=== PATIENT | female | born 1975 | race Two or more races ===

== ENCOUNTER 2021-12-07 18:37 | Inpatient (IN) | payer MEDICAID ==
[~2021-12-07] VITALS: Ht 154.9 cm; Wt 114.9 kg
[2021-12-07 19:33] LABS: Basophils # (auto) 0.1 10 ^3/uL (0-0.2); Eosinophils # (auto) 0.1 10 ^3/uL (0-0.8); Eosinophils % (auto) 0.9 % (0.0-7.0); Mean Corpuscular Hemoglobin 22.7 pg (28.0-32.0)
[2021-12-07 19:34] LABS: Basophils % (auto) 0.7 % (0.0-2.0); Hematocrit 34.1 % (36.0-46.0); Hemoglobin 11.2 g/dL (12.2-16.2); Lymphocytes # (auto) 1.9 10 ^3/uL (0.4-5.4); Lymphocytes % (auto) 20.5 % (10.0-50.0); Mean Corpuscular Hgb Conc. 32.7 g/dL (32.0-36.0); Mean Corpuscular Volume 69.3 fL (80.0-100.0); Monocytes # (auto) 0.4 10 ^3/uL (0-1.3); Monocytes % (auto) 4.9 % (0.0-12.0); Neutrophils # (auto) 6.6 10 ^3/uL (1.6-8.6); Red Blood Cells 4.93 10^6/uL (4.0-5.20); Red Cell Distribution Width 18.7 % (11.8-14.3)
[2021-12-07 19:36] LABS: Urine Bacteria NONE SEEN /hpf (None Seen); Urine Blood TRACE /uL (Negative); Urine Specific Gravity 1.039 (1.001-1.035); Urine WBC 2 /hpf (0 - 5)
[2021-12-07] MEDS ORDERED: InsuLIN REG 1unit/0.01ml Soln (100units/ml) IV ONE (19:45)
[2021-12-07 19:55] LABS: Albumin 3.9 g/dL (3.4-5.0); Calcium 8.5 mg/dL (8.5-10.1); Potassium 4.2 mmol/L (3.5-5.1)
[2021-12-07 19:59] LABS: BUN/Creatinine Ratio 12.6; Bilirubin, Total 0.4 mg/dL (0.2-1.0)
[2021-12-07] MEDS ORDERED: NITROGLYCERIN 0.4 MG SL TAB SL PRN (23:30)
[2021-12-07] MEDS ORDERED: DOCUSATE SOD 100 MG CAP PO PRN (23:30)
[2021-12-07] MEDS ORDERED: HYDROcodone-ACET 5/325MG TAB PO PRN (23:30)
[2021-12-07] MEDS ORDERED: TEMAZEPAM 15 MG CAP PO PRN (23:30)
[2021-12-07] MEDS ORDERED: DEXTROSE (50%) 50ML SYRG IV PRN (23:30)
[2021-12-07] MEDS ORDERED: MORPHINE SULFATE INJ 2 MG/ml SYRG IV PRN (23:30)
[2021-12-07] MEDS ORDERED: ONDANSETRON HCL 4 MG/2 ML VIAL IV PRN (23:30)
[2021-12-07] MEDS ORDERED: ACETAMINOPHEN 325 MG TAB PO PRN (23:30)
[2021-12-08] MEDS: SODIUM CHLORIDE 0.9% 1,000 ML IV SCH ×2 (01:57→16:45)
[2021-12-08] MEDS: InsuLIN REG 1unit/0.01ml Soln (100units/ml) SC SCH ×4 (02:18→18:27)
[2021-12-08] MEDS: ACCU-CHEK COMFORT CURVE STRIP VI SCH ×4 (02:20→18:22)
[2021-12-08 04:37] LABS: Basophils # (auto) 0.1 10 ^3/uL (0-0.2); Basophils % (auto) 0.8 % (0.0-2.0); Eosinophils # (auto) 0.1 10 ^3/uL (0-0.8); Eosinophils % (auto) 1.6 % (0.0-7.0); Hematocrit 32.4 % (36.0-46.0); Hemoglobin 10.6 g/dL (12.2-16.2); Lymphocytes # (auto) 1.6 10 ^3/uL (0.4-5.4); Lymphocytes % (auto) 21.6 % (10.0-50.0); Mean Corpuscular Hemoglobin 22.7 pg (28.0-32.0); Mean Corpuscular Hgb Conc. 32.7 g/dL (32.0-36.0); Mean Corpuscular Volume 69.3 fL (80.0-100.0); Monocytes # (auto) 0.4 10 ^3/uL (0-1.3); Monocytes % (auto) 5.8 % (0.0-12.0); Neutrophils # (auto) 5.2 10 ^3/uL (1.6-8.6); Neutrophils % (auto) 70.2 % (37.0-80.0); Red Blood Cells 4.67 10^6/uL (4.0-5.20); Red Cell Distribution Width 18.6 % (11.8-14.3); White Blood Cell 7.5 10^3/uL (4.4-10.8)
[2021-12-08 04:49] LABS: Albumin 3.6 g/dL (3.4-5.0); Calcium 8.6 mg/dL (8.5-10.1); Potassium 4.2 mmol/L (3.5-5.1)
[2021-12-08 05:00] LABS: BUN/Creatinine Ratio 13.8; Bilirubin, Total 0.4 mg/dL (0.2-1.0); Total Protein 7.4 g/dL (6.4-8.2)
[2021-12-08] MEDS: INSULIN LANTUS (GLARGINE) 1 /0.01ml (100units/ml) SC SCH ×2 (07:04→21:28)
[2021-12-08 15:30] VITALS: BP 118/84
[2021-12-08] MEDS ORDERED: LOSA25TA38 PO (15:43)
[2021-12-08 16:00] VITALS: BP 118/84
[2021-12-08 22:00] VITALS: BP 134/73
[2021-12-09] MEDS: InsuLIN REG 1unit/0.01ml Soln (100units/ml) SC SCH ×4 (00:33→18:14)
[2021-12-09] MEDS: ACCU-CHEK COMFORT CURVE STRIP VI SCH ×4 (00:36→18:13)
[2021-12-09 05:00] VITALS: BP 110/73
[2021-12-09] MEDS: INSULIN LANTUS (GLARGINE) 1 /0.01ml (100units/ml) SC SCH ×2 (07:02→23:09)
[2021-12-09 08:38] VITALS: BP 97/61
[2021-12-09] MEDS: SODIUM CHLORIDE 0.9% 1,000 ML IV SCH (08:51)
[2021-12-09 12:51] VITALS: BP 118/69
[2021-12-09 16:50] VITALS: BP 106/77
[2021-12-09 22:00] VITALS: BP 120/74
[2021-12-10] MEDS: ACCU-CHEK COMFORT CURVE STRIP VI SCH ×3 (00:43→12:07)
[2021-12-10] MEDS: InsuLIN REG 1unit/0.01ml Soln (100units/ml) SC SCH ×3 (00:44→12:22)
[2021-12-10] MEDS: SODIUM CHLORIDE 0.9% 1,000 ML IV SCH (00:47)
[2021-12-10 05:00] VITALS: BP 117/67
[2021-12-10] MEDS: INSULIN LANTUS (GLARGINE) 1 /0.01ml (100units/ml) SC SCH (06:52)
[2021-12-10 08:32] VITALS: BP 99/63
[2021-12-10] MEDS ORDERED: METF-372 PO (10:38)
[2021-12-10 11:14] VITALS: BP 130/74
[2021-12-10 13:23] VITALS: BP 120/80
== END 2021-12-10 13:51 | disposition home or self-care (01) | DRG 420 ==
LOC: ER 18:39 → OVERFLOW 23:21 → EAST 12-08 15:48
PROVIDERS: ADMIT Nurse Practitioner Family; ATTEND Family Medicine
DX: E11.10 Type 2 diabetes mellitus with ketoacidosis without coma (principal); E87.1 Hypo-osmolality and hyponatremia; E66.01 Morbid (severe) obesity due to excess calories; I10 Essential (primary) hypertension; E86.0 Dehydration; H53.8 Other visual disturbances; Z68.41 Body mass index [BMI] 40.0-44.9, adult; Z83.3 Family history of diabetes mellitus
CPT/HCPCS: 36415; 36600; 71046; 80053; 81001; 82805; 82962; 83036; 84484; 85025; 93005; 99291; G0378; J1815

== ENCOUNTER 2022-11-01 14:42 | Emergency (ER) | payer MEDICAID ==
[~2022-11-01] VITALS: Ht 172.7 cm; Wt 108.5 kg
[~2022-11-01 14:42] MED LIST: LOSA25TA15 PO; METF-372 PO
[2022-11-01 15:47] VITALS: BP 156/85; PULSE 89; RESP 16; TEMP 97.8; O2SAT 96
[2022-11-01 16:35] LABS: Basophils # (auto) 0 10 ^3/uL (0-0.2); Basophils % (auto) 0.6 % (0.0-2.0); Eosinophils # (auto) 0.1 10 ^3/uL (0-0.8); Eosinophils % (auto) 1.5 % (0.0-7.0); Hemoglobin 12.3 g/dL (12.2-16.2); Lymphocytes # (auto) 1.8 10 ^3/uL (0.4-5.4); Mean Corpuscular Hemoglobin 26.3 pg (28.0-32.0); Mean Corpuscular Hgb Conc. 33.3 g/dL (32.0-36.0); Mean Corpuscular Volume 79.1 fL (80.0-100.0); Monocytes # (auto) 0.3 10 ^3/uL (0-1.3); Monocytes % (auto) 4.6 % (0.0-12.0); Neutrophils # (auto) 5.1 10 ^3/uL (1.6-8.6); Neutrophils % (auto) 69.3 % (37.0-80.0); Nucleated Red Blood Cells % 0.1 %; Red Blood Cells 4.67 10^6/uL (4.0-5.20); Red Cell Distribution Width 17.3 % (11.8-14.3); White Blood Cell 7.3 10^3/uL (4.4-10.8)
[2022-11-01 16:43] LABS: Urine Bacteria NONE SEEN /hpf (None Seen); Urine Blood 2+ /uL (Negative); Urine Clarity Clear (Clear); Urine Color Yellow (Yellow); Urine Protein, UAD TRACE (Negative); Urine Specific Gravity 1.028 (1.001-1.035); Urine Urobilinogen Normal (Negative); Urine WBC 3 /hpf (0 - 5); Urine pH 5.5 (5.0-8.0)
[2022-11-01 16:52] LABS: Chloride 105 mmol/L (98-107); Potassium 3.9 mmol/L (3.5-5.1); Sodium 137 mmol/L (136-145)
[2022-11-01 16:53] LABS: Anion Gap 8.6 (5-15); Calcium 9.4 mg/dL (8.5-10.1); Carbon Dioxide 23.4 mmol/L (20-30)
[2022-11-01 16:58] LABS: BUN/Creatinine Ratio 11.6 (10.0-20.0); Blood Urea Nitrogen 10 mg/dL (9-23); Glucose 112 mg/dL (74-106)
[2022-11-01 17:17] LABS: INR 0.99 (0.9-1.15); Prothrombin Time 10.4 sec (9.3-11.8)
[2022-11-01] MEDS ORDERED: CEPH500C PO (17:31)
== END 2022-11-01 17:38 | disposition home or self-care (01) ==
LOC: ER 14:42
DX: R60.0 Localized edema (principal); I10 Essential (primary) hypertension; E11.9 Type 2 diabetes mellitus without complications; Z79.84 Long term (current) use of oral hypoglycemic drugs; Z79.899 Other long term (current) drug therapy; Z88.0 Allergy status to penicillin
CPT/HCPCS: 36415; 80048; 81001; 83605; 83880; 85025; 85610; 87040; 93971

== ENCOUNTER 2023-04-27 13:59 | Inpatient (IN) | payer MEDICAID ==
[~2023-04-27] VITALS: Ht 152.4 cm; Wt 110.5 kg
[~2023-04-27 13:59] MED LIST changes: +CEPH500C PO
[2023-04-27 14:45] LABS: Urine Bacteria FEW /hpf (None Seen); Urine Blood 3+ /uL (Negative); Urine Clarity HAZY (Clear); Urine Color Yellow (Yellow); Urine Protein, UAD Negative (Negative); Urine Specific Gravity 1.012 (1.001-1.035); Urine Urobilinogen Normal (Negative); Urine WBC 3 /hpf (0 - 5)
[2023-04-27 14:55] LABS: Basophils # (auto) 0 10 ^3/uL (0-0.2); Basophils % (auto) 0.5 % (0.0-2.0); Eosinophils # (auto) 0.1 10 ^3/uL (0-0.8); Lymphocytes # (auto) 1.3 10 ^3/uL (0.4-5.4); Mean Corpuscular Volume 79.6 fL (80.0-100.0); Monocytes # (auto) 0.5 10 ^3/uL (0-1.3)
[2023-04-27 14:57] LABS: Eosinophils % (auto) 1.5 % (0.0-7.0); Hematocrit 34.4 % (36.0-46.0); Hemoglobin 11.6 g/dL (12.2-16.2); Lymphocytes % (auto) 17.6 % (10.0-50.0); Mean Corpuscular Hemoglobin 26.8 pg (28.0-32.0); Mean Corpuscular Hgb Conc. 33.6 g/dL (32.0-36.0); Monocytes % (auto) 6.8 % (0.0-12.0); Neutrophils # (auto) 5.6 10 ^3/uL (1.6-8.6); Neutrophils % (auto) 73.6 % (37.0-80.0); Red Blood Cells 4.32 10^6/uL (4.0-5.20); Red Cell Distribution Width 16.8 % (11.8-14.3); White Blood Cell 7.6 10^3/uL (4.4-10.8)
[2023-04-27 15:04] LABS: Chloride 107 mmol/L (98-107); Potassium 4.1 mmol/L (3.5-5.1); Sodium 138 mmol/L (136-145)
[2023-04-27 15:05] LABS: Anion Gap 8 (5-15); Carbon Dioxide 23 mmol/L (20-30)
[2023-04-27 15:06] LABS: Calcium 8.9 mg/dL (8.7-10.4)
[2023-04-27 15:10] LABS: BUN/Creatinine Ratio 10.9 (10.0-20.0); Blood Urea Nitrogen 7 mg/dL (9-23); Glucose 136 mg/dL (74-106)
[2023-04-27] MEDS: ASPirin 81 mg TAB PO ONE (15:14)
[2023-04-27] MEDS ORDERED: MORPHINE SULFATE INJ 2 MG/ml SYRG IV PRN (18:00)
[2023-04-27] MEDS ORDERED: DOCUSATE SOD 100 MG CAP PO PRN (18:00)
[2023-04-27] MEDS ORDERED: ONDANSETRON HCL 4 MG/2 ML VIAL IV PRN (18:00)
[2023-04-27] MEDS ORDERED: NITROGLYCERIN 0.4 MG SL TAB SL PRN (18:00)
[2023-04-27] MEDS ORDERED: HYDROcodone-ACET 5/325MG TAB PO PRN (18:00)
[2023-04-27] MEDS: LACTATED RINGER'S 1,000 ML IV ONE (18:15)
[2023-04-27 18:56] VITALS: PULSE 74; RESP 16; O2SAT 99
[2023-04-27 19:27] VITALS: PULSE 72; RESP 14; O2SAT 99
[2023-04-27 19:28] LABS: Triglycerides 135 mg/dL (< 150)
[2023-04-27 19:29] LABS: LDL Cholesterol 125 mg/dL (< 100)
[2023-04-27 19:30] LABS: Cholesterol 177 mg/dL (< 200); HDL Cholesterol 39 mg/dL (40-59)
[2023-04-27] MEDS: SODIUM CHLOR 0.9% PF (SALINE LOCK) 10ML VIAL/SYR IV SCH (21:53)
[2023-04-27 23:29] VITALS: BP 136/79; PULSE 89; PULSE 99; RESP 18; TEMP 98.5; O2SAT 99
[2023-04-28] VITALS (7 sets, daily range): BP systolic 119–169; BP diastolic 49–101; PULSE 69–85; RESP 17–18; TEMP 97.6–98.5; O2SAT 96–100
[2023-04-28] MEDS: ACETAMINOPHEN 325 MG TAB PO PRN (04:42)
[2023-04-28 09:03] LABS: Hepatitis B Surface Antigen Negative (Negative)
[2023-04-28 09:24] LABS: Hepatitis C Antibody Negative (Negative)
[2023-04-28] MEDS: LOSARTAN POTASSIUM 25 MG TAB PO SCH (10:01)
[2023-04-28] MEDS: ENOXAPARIN SOD 40 MG/0.4 ML SYRINGE SC SCH (10:02)
[2023-04-28] MEDS: LOSARTAN POTASSIUM 25 MG TAB PO ONE (15:04)
[2023-04-28] MEDS: cefTRIAXone 1GM/50ML D5W 50 ML IV ONE (15:33)
[2023-04-28 15:42] LABS: Basophils # (auto) 0 10 ^3/uL (0-0.2); Basophils % (auto) 0.6 % (0.0-2.0); Eosinophils # (auto) 0.1 10 ^3/uL (0-0.8); Hemoglobin 11.3 g/dL (12.2-16.2); Monocytes # (auto) 0.5 10 ^3/uL (0-1.3); Neutrophils # (auto) 4.8 10 ^3/uL (1.6-8.6)
[2023-04-28 15:45] LABS: Eosinophils % (auto) 1.7 % (0.0-7.0); Hematocrit 33.8 % (36.0-46.0); Lymphocytes # (auto) 1.5 10 ^3/uL (0.4-5.4); Lymphocytes % (auto) 21.5 % (10.0-50.0); Mean Corpuscular Hemoglobin 26.4 pg (28.0-32.0); Mean Corpuscular Hgb Conc. 33.4 g/dL (32.0-36.0); Mean Corpuscular Volume 78.9 fL (80.0-100.0); Monocytes % (auto) 6.8 % (0.0-12.0); Neutrophils % (auto) 69.4 % (37.0-80.0); Nucleated Red Blood Cells % 0.1 %; Red Blood Cells 4.28 10^6/uL (4.0-5.20); Red Cell Distribution Width 16.3 % (11.8-14.3); White Blood Cell 6.9 10^3/uL (4.4-10.8)
[2023-04-28 16:03] LABS: % Iron Saturation 11.6 % (15-50)
[2023-04-28 16:04] LABS: Alanine Aminotransferase 31 U/L (7-40); Albumin 4.3 g/dL (3.2-4.8); Alkaline Phosphatase 102 U/L (46-116); Anion Gap 6 (5-15); Aspartate Aminotransferase 21 U/L (13-40); BUN/Creatinine Ratio 14.3 (10.0-20.0); Blood Urea Nitrogen 10 mg/dL (9-23); Carbon Dioxide 25 mmol/L (20-30); Chloride 105 mmol/L (98-107); Glucose 128 mg/dL (74-106); Potassium 3.9 mmol/L (3.5-5.1); Sodium 136 mmol/L (136-145)
[2023-04-28 16:05] LABS: Bilirubin, Total 0.5 mg/dL (0.2-1.0); Total Protein 7.4 g/dL (5.7-8.2)
[2023-04-28] MEDS: ATORVASTATIN 20 MG TAB PO SCH (21:27)
[2023-04-29] VITALS (7 sets, daily range): BP systolic 106–127; BP diastolic 60–77; PULSE 70–85; RESP 16–18; TEMP 97.7–98.7; O2SAT 95–98
[2023-04-29 06:00] LABS: Basophils # (auto) 0 10 ^3/uL (0-0.2); Basophils % (auto) 0.6 % (0.0-2.0); Eosinophils # (auto) 0.1 10 ^3/uL (0-0.8); Eosinophils % (auto) 1.9 % (0.0-7.0); Hematocrit 32.9 % (36.0-46.0); Hemoglobin 10.8 g/dL (12.2-16.2); Lymphocytes # (auto) 1.6 10 ^3/uL (0.4-5.4); Lymphocytes % (auto) 21.5 % (10.0-50.0); Mean Corpuscular Hemoglobin 26.2 pg (28.0-32.0); Mean Corpuscular Hgb Conc. 32.8 g/dL (32.0-36.0); Mean Corpuscular Volume 79.7 fL (80.0-100.0); Monocytes # (auto) 0.5 10 ^3/uL (0-1.3); Monocytes % (auto) 7.2 % (0.0-12.0); Neutrophils # (auto) 5.1 10 ^3/uL (1.6-8.6); Neutrophils % (auto) 68.8 % (37.0-80.0); Red Blood Cells 4.13 10^6/uL (4.0-5.20); Red Cell Distribution Width 16.4 % (11.8-14.3); White Blood Cell 7.4 10^3/uL (4.4-10.8)
[2023-04-29 06:08] LABS: Chloride 106 mmol/L (98-107); Potassium 3.7 mmol/L (3.5-5.1); Sodium 137 mmol/L (136-145)
[2023-04-29 06:09] LABS: Anion Gap 7 (5-15); Carbon Dioxide 24 mmol/L (20-30)
[2023-04-29 06:10] LABS: Calcium 8.7 mg/dL (8.7-10.4)
[2023-04-29 06:14] LABS: Glucose 137 mg/dL (74-106)
[2023-04-29 06:15] LABS: BUN/Creatinine Ratio 14.7 (10.0-20.0); Blood Urea Nitrogen 10 mg/dL (9-23); Magnesium 2.2 mg/dL (1.6-2.6)
[2023-04-29] MEDS: FERROUS SULFATE 325mg EC TAB PO SCH (09:11)
[2023-04-29] MEDS: cefTRIAXone 1GM/50ML D5W 50 ML IV SCH (09:11)
[2023-04-29] MEDS: ASPirin 81 mg TAB PO SCH (11:47)
[2023-04-29] MEDS ORDERED: IOHEXOL 350 MG/ML 100ML IJ ONE (12:07)
[2023-04-29] MEDS: CLOPIDOGREL BISULFATE 75 MG TAB PO ONE (19:17)
[2023-04-29] MEDS: LOSARTAN POTASSIUM 50 MG TAB PO SCH (19:22)
[2023-04-30 05:00] VITALS: BP 102/64; PULSE 70; RESP 17; TEMP 98; O2SAT 99
[2023-04-30 08:00] VITALS: BP 117/63; PULSE 67; PULSE 70; RESP 18; TEMP 98.6; O2SAT 97
[2023-04-30] MEDS: CLOPIDOGREL BISULFATE 75 MG TAB PO SCH (08:48)
[2023-04-30 09:00] VITALS: BP 117/63; PULSE 67; RESP 18; TEMP 98.6; O2SAT 97
[2023-04-30] MEDS ORDERED: CLOP75TA70 PO (10:28)
[2023-04-30] MEDS ORDERED: FER325T PO ×2 (10:28→15:37)
[2023-04-30] MEDS ORDERED: ASPI1TAB20 PO ×2 (10:28→15:37)
[2023-04-30] MEDS ORDERED: ATOR40TA52 PO (10:28)
[2023-04-30] MEDS ORDERED: LOSA25TA15 PO ×2 (10:32→15:37)
[2023-04-30 11:19] VITALS: BP 117/63; PULSE 67; RESP 18; TEMP 98.6; O2SAT 97
[2023-04-30] MEDS ORDERED: FERROUS SULFATE 325mg EC TAB PO SCH (12:00)
[2023-04-30] MEDS: FERROUS SULFATE 325mg EC TAB PO SCH (12:02)
[2023-04-30 13:00] VITALS: BP 110/68; PULSE 79; RESP 18; TEMP 98.6; O2SAT 96
[2023-04-30] MEDS: IBUPROFEN 400 MG TAB PO ONE (13:41)
[2023-04-30] MEDS ORDERED: METF-929 PO (15:37)
[2023-04-30] MEDS ORDERED: CLOP75TA28 PO (15:37)
[2023-04-30] MEDS ORDERED: ATO40T PO (15:37)
== END 2023-04-30 18:01 | disposition home or self-care (01) | DRG 45 ==
LOC: ER 13:59 → TELE-WESTW 18:01 → TELE 18:01 → TELE-WESTW 22:55
PROVIDERS: ADMIT Internal Medicine Geriatric Medicine; ATTEND Internal Medicine Geriatric Medicine
DX: I63.9 Cerebral infarction, unspecified (principal); D50.9 Iron deficiency anemia, unspecified; E11.9 Type 2 diabetes mellitus without complications; E78.5 Hyperlipidemia, unspecified; I10 Essential (primary) hypertension; R07.89 Other chest pain; N39.0 Urinary tract infection, site not specified; R20.0 Anesthesia of skin; Z80.3 Family history of malignant neoplasm of breast; Z88.0 Allergy status to penicillin; Z90.49 Acquired absence of other specified parts of digestive tract
CPT/HCPCS: 36415; 70450; 70496; 70551; 71046; 72141; 80048; 80053; 80061; 81001; 82728; 83010; 83036; 83540; 83550; 83615; 83735; 83880; 84443; 84484; 85025; 85045; 86803; 87081; 87086; 87340; 93005; 93306; 93886; G0378

== ENCOUNTER 2023-05-05 08:46 | Emergency (ER) | payer MEDICAID ==
[~2023-05-05] VITALS: Ht 154.9 cm; Wt 107.2 kg
[~2023-05-05 08:46] MED LIST changes: +ASPI1TAB20 PO; +ATO40T PO; -CEPH500C PO; +CLOP75TA28 PO; +FER325T PO; -METF-372 PO; +METF-929 PO
[2023-05-05 09:13] LABS: Basophils # (auto) 0.1 10 ^3/uL (0-0.2); Basophils % (auto) 0.7 % (0.0-2.0); Eosinophils # (auto) 0.1 10 ^3/uL (0-0.8); Eosinophils % (auto) 1.1 % (0.0-7.0); Hematocrit 32.8 % (36.0-46.0); Hemoglobin 10.8 g/dL (12.2-16.2); Lymphocytes # (auto) 1.3 10 ^3/uL (0.4-5.4); Lymphocytes % (auto) 15.6 % (10.0-50.0); Mean Corpuscular Hemoglobin 26.3 pg (28.0-32.0); Mean Corpuscular Hgb Conc. 32.9 g/dL (32.0-36.0); Mean Corpuscular Volume 79.9 fL (80.0-100.0); Monocytes # (auto) 0.3 10 ^3/uL (0-1.3); Monocytes % (auto) 3.9 % (0.0-12.0); Neutrophils # (auto) 6.7 10 ^3/uL (1.6-8.6); Neutrophils % (auto) 78.7 % (37.0-80.0); Red Cell Distribution Width 16.7 % (11.8-14.3); White Blood Cell 8.6 10^3/uL (4.4-10.8)
[2023-05-05 09:30] LABS: Alanine Aminotransferase 25 U/L (7-40); Albumin 4.4 g/dL (3.2-4.8); Alkaline Phosphatase 110 U/L (46-116); Anion Gap 6 (5-15); Aspartate Aminotransferase 18 U/L (13-40); BUN/Creatinine Ratio 16.7 (10.0-20.0); Bilirubin, Total 0.5 mg/dL (0.2-1.0); Blood Urea Nitrogen 11 mg/dL (9-23); Carbon Dioxide 25 mmol/L (20-30); Chloride 106 mmol/L (98-107); Glucose 196 mg/dL (74-106); Potassium 4.3 mmol/L (3.5-5.1); Sodium 137 mmol/L (136-145); Total Protein 6.8 g/dL (5.7-8.2)
[2023-05-05 10:08] VITALS: PULSE 94; RESP 18; O2SAT 98
[2023-05-05 10:13] LABS: Urine Bacteria NONE SEEN /hpf (None Seen); Urine Blood 3+ /uL (Negative); Urine Clarity HAZY (Clear); Urine Color PINK (Yellow); Urine Protein, UAD 1+ (Negative); Urine Specific Gravity 1.021 (1.001-1.035); Urine WBC 36 /hpf (0 - 5)
[2023-05-05] MEDS ORDERED: NITR-87 PO (11:12)
[2023-05-05 11:18] VITALS: BP 129/77; PULSE 79; RESP 18; TEMP 98.1; O2SAT 100
== END 2023-05-05 11:18 | disposition home or self-care (01) ==
LOC: ER 08:46
DX: D64.9 Anemia, unspecified (principal); R10.2 Pelvic and perineal pain; I10 Essential (primary) hypertension; E11.9 Type 2 diabetes mellitus without complications; E78.5 Hyperlipidemia, unspecified; Z86.2 Personal history of diseases of the blood and blood-forming organs and certain disorders involving the immune mechanism; Z90.49 Acquired absence of other specified parts of digestive tract; Z79.82 Long term (current) use of aspirin; Z79.01 Long term (current) use of anticoagulants; Z79.899 Other long term (current) drug therapy; Z88.0 Allergy status to penicillin; Z86.73 Personal history of transient ischemic attack (TIA), and cerebral infarction without residual deficits
CPT/HCPCS: 36415; 80053; 81001; 84702; 85025

== ENCOUNTER → 2023-06-06 | Outpatient (CLI) | payer MEDICAID ==
[~2023-06-06] MED LIST changes: -ATO40T PO; +ATOR-507 PO; +LOSA-533 PO; -LOSA25TA15 PO; +NITR-87 PO
== END | disposition home or self-care (01) ==
LOC: LAB 09:00
PROVIDERS: ATTEND Obstetrics & Gynecology
DX: N93.9 Abnormal uterine and vaginal bleeding, unspecified (principal)

== ENCOUNTER → 2023-12-12 | Outpatient (CLI) | payer MEDICAID | END | disposition home or self-care (01) | LOC: Rad HDHVI 13:00 | PROVIDERS: ATTEND Internal Medicine Cardiovascular Disease | DX: R07.89 Other chest pain (principal); R00.2 Palpitations | CPT/HCPCS: 93306 ==

== ENCOUNTER → 2023-12-15 | Outpatient (CLI) | payer MEDICAID ==
[~2023-12-15] VITALS: Ht 154.9 cm; Wt 101.2 kg
== END | disposition home or self-care (01) ==
LOC: Rad HDHVI 13:09
PROVIDERS: ATTEND Internal Medicine Cardiovascular Disease
DX: I10 Essential (primary) hypertension (principal); E78.00 Pure hypercholesterolemia, unspecified; E11.9 Type 2 diabetes mellitus without complications; R07.89 Other chest pain
CPT/HCPCS: 78452; 93017; 96374; A9500

== ENCOUNTER 2024-08-04 19:36 | Emergency (ER) | payer MEDICAID ==
[~2024-08-04] VITALS: Ht 154.9 cm; Wt 100.7 kg
[2024-08-04 20:05] LABS: Basophils # (auto) 0.1 10 ^3/uL (0-0.2); Basophils % (auto) 0.7 % (0.0-2.0); Eosinophils # (auto) 0.2 10 ^3/uL (0-0.8); Hematocrit 36.4 % (36.0-46.0); Hemoglobin 12.1 g/dL (12.2-16.2); Lymphocytes # (auto) 1.8 10 ^3/uL (0.4-5.4); Lymphocytes % (auto) 21.6 % (10.0-50.0); Mean Corpuscular Hemoglobin 26.4 pg (28.0-32.0); Mean Corpuscular Hgb Conc. 33.2 g/dL (32.0-36.0); Mean Corpuscular Volume 79.5 fL (80.0-100.0); Monocytes # (auto) 0.4 10 ^3/uL (0-1.3); Monocytes % (auto) 4.6 % (0.0-12.0); Neutrophils % (auto) 71.1 % (37.0-80.0); Nucleated Red Blood Cells % 0.1 %; Platelet Count (auto) 282 10^3/uL (140-450); Red Blood Cells 4.58 10^6/uL (4.0-5.20); White Blood Cell 8.4 10^3/uL (4.4-10.8)
--- NOTE | 2024-08-04 20:08 | ED.PDOC ---
HPI Comments 49 year old female presents to the ED with a chief complaint of chest pressure onset 4 days. PMHx HTN, HLD, DM, anemia. Patient states she has been experiencing chest pressure, fatigue, dizziness as well as intermittent shortness of breath for the past 4 days. She noticed symptoms improve when she is still and worsen with walking. She also noticed she has been feeling anxious the last few days. Denies headache, blurry vision, nausea, vomiting, diarrhea, hematemesis, fevers. No other symptoms or modifying factors present at this time. Chief Complaint: Chest Pain Time Seen by MD: 20:00 Primary Care Provider: UNKNOWN Reviewed Notes: Medications, Allergies Allergies: Coded Allergies: Penicillins (Verified Allergy, Unknown, 12/07/21) Home Meds Active Scripts Nitrofurantoin Monohydrate Mac (Macrobid) 100 Mg Cap, 100 MG PO BID for 7 Days, #14 CAP Prov:DAVE RAY MD 05/05/23 Ferrous Sulfate (Ferrous Sulfate) 325 Mg Tab, 325 MG PO BID for 30 Days, #60 TAB Prov:JOSE TEE MD 04/30/23 Metformin HCl (Metformin Hydrochloride) 1,000 Mg Tab, 1000 MG PO BID for 30 Days, #60 TAB Prov:JOSE TEE MD 04/30/23 Losartan Potassium (Losartan Potassium) 25 Mg Tab, 1 TAB PO DAILY, #30 TAB 0 Refills Prov:JOSE TEE MD 04/30/23 Atorvastatin Calcium (Lipitor) 40 Mg Tab, 1 TAB PO DAILY, #30 TAB 0 Refills Prov:JOSE TEE MD 04/30/23 Clopidogrel Bisulfate (Plavix) 75 Mg Tab, 1 TAB PO DAILY, #21 TAB 0 Refills Prov:JOSE TEE MD 04/30/23 Aspirin (Aspir-81) 81 Mg Tab, 1 TAB PO DAILY, #100 TAB 0 Refills Prov:JOSE TEE MD 04/30/23 Information Source: Patient Mode of Arrival: Ambulatory Severity: Moderate Timing: Days Duration: Since onset Prehospital treatment: None Location: Chest (L) Radiation: No Radiation Quality: Pressure Onset: With Light Exertion Cardiac Risk Factors: Hyperlipidemia, HTN, Diabetes PE Risk Factors: None History of: None Modifying Factors: Nothing Associated Signs and Symptoms: SOB Past Medical History PAST MEDICAL HISTORY: Anemia, DM, High Lipids, HTN Surgical History: Cholecystectomy, 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 Hx Family History Family History: Reviewed,noncontributory to illness, Family hx of Cancer Social History Smoker: Non-Smoker Alcohol: Denies ETOH Use Drugs: Denies Drug Use Lives In: Home Constitutional: reports: fatigue; denies: chills, diaphoresis, fever, malaise, sweats, weakness, others EENTM: denies: blurred vision, double vision, ear bleeding, ear discharge, ear drainage, ear pain, ear ringing, eye pain, eye redness, hearing loss, mouth pain, mouth swelling, nasal discharge, nose bleeding, nose congestion, nose pain, photophobia, tearing, throat pain, throat swelling, voice changes, others Respiratory: reports: shortness of breath; denies: cough, hemoptysis, orthopnea, SOB at rest, SOB with excertion, stridor, wheezing, others Cardiovascular: reports: others (chest pressure); denies: chest pain, dizzy spells, diaphoresis, Dyspnea on exertion, edema, irregular heart beat, left arm pain, lightheadedness, palpitations, PND, syncope Gastrointestinal: denies: abdomen distended, abdominal pain, blood streaked samuel wels, constipated, diarrhea, dysphagia, difficulty swallowing, hematemesis, melena, nausea, poor appetite, poor fluid intake, rectal bleeding, rectal pain, vomiting, others Genitourinary: denies: abnormal vagina bleeding, burning, dyspareunia, dysuria, flank pain, frequency, hematuria, incontinence, pain, , vagina discharge, urgency, others Neurological: reports: dizziness; denies: fainting, headache, left sided numbness, left sided weakness, numbness, paresthesia, pre-existing deficit, right sided numbness, right sided weakness, seizure, speech problems, tingling, tremors, weakness, others Musculoskeletal: denies: back pain, gout, joint pain, joint swelling, muscle pain, muscle stiffness, neck pain, others Integumetry: denies: bruises, change in color, change in hair/nails, dryness, laceration, lesions, lumps, rash, wounds, others Allergic/Immunocompromised: denies: Difficulty Healing, Frequent Infections, Hives, Itching, others Hematologic/Lymphatic: denies: anemia, blood clots, easy bleeding, easy bruising, swollen glands, others Endocrine: denies: excessive hunger, excessive sweating, excessive thirst, excessive urination, flushing, intolerance to cold, intolerance to heat, unexplained weight gain, unexplained weight loss, others Psychiatric: denies: anxiety, bipolar disorder, depression, hopeless, panic d isorder, schizophrenia, sleepless, suicidal, others All Other Systems: Reviewed and Negative Physical Exam General Appearance: No Apparent Distress, Normal HEENT: Normal ENT Inspection, Pharynx Normal, TMs Normal Neck: Full Range of Motion, Non-Tender, Normal, Normal Inspection Respiratory: Chest Non-Tender, Lungs Clear, No Accessory Muscle Use, No Respiratory Distress, Normal Breath Sounds Cardiovascular: No Edema, No JVD, No Murmur, No Gallop, Normal Peripheral Pulses, Regular Rate/Rhythm Breast Exam: Deferred Gastrointestinal: No Organomegaly, Non Tender, No Pulsatile Mass, Normal Bowel Sounds, Soft Genitalia: Deferred Pelvic: Deferred Rectal: Deferred Extremities: No calf tenderness, Normal capillary refill, Normal inspection, Normal range of motion, Non-tender, No pedal edema Musculoskeletal : Apperance: Normal Neurologic: Alert, concrete batcher II-XII nml as Tested, No Motor Deficits, Normal Affect, Normal Mood, No Sensory Deficits Cerebellar Function: Normal Reflexes: Normal Skin: Dry, Normal Color, Warm Lymphatic: No Adenopathy EKG EKG : Pulse Rate (adult): 77 Cardiac Rhythm: NSR Was a procedure done? Was a procedure done?: No CP Differential Dx Differential Diagnosis: A-Flutter, Angina, Electrolyte Disorder, Heart Failure, Hyperthyroidism, Hyperventilation, CT, PAC's, Pacemaker Malfunction, Ventricular Dysrhythmia, V-Fib, V-Tach, Other X-Ray, Labs, Meds, VS Vital Signs Date Time Temp Pulse Resp B/P (MAP) Pulse Ox O2 Delivery O2 Flow Rate FiO2 08/04/24 23:01 98.1 73 16 131/98 (109) 97 98.1 08/04/24 23:01 73 16 97 Room Air* 0 21 08/04/24 20:36 74 08/04/24 20:08 77 08/04/24 19:51 98.0 79 16 148/76 (100) 99 98.0 08/04/24 19:44 77 Lab Test 08/04/24 20:35 08/04/24 19:49 Range/Units Troponin I High Sensitivity < 3 L < 3 L </=34 ng/L White Blood Count 8.4 4.4-10.8 10^3/uL Red Blood Count 4.58 4.0-5.20 10^6/uL Hemoglobin 12.1 L 12.2-16.2 g/dL Hematocrit 36.4 36.0-46.0 % Mean Corpuscular Volume 79.5 L 80.0-100.0 fL Mean Corpuscular Hemoglobin 26.4 L 28.0-32.0 pg Mean Corpuscular Hemoglobin Concent 33.2 32.0-36.0 g/dL Red Cell Distribution Width 18.0 H 11.8-14.3 % Platelet Count 282 140-450 10^3/uL Mean Platelet Volume 7.1 6.9-10.8 fL Neutrophils (%) (Auto) 71.1 37.0-80.0 % Lymphocytes (%) (Auto) 21.6 10.0-50.0 % Monocytes (%) (Auto) 4.6 0.0-12.0 % Eosinophils (%) (Auto) 2.0 0.0-7.0 % Basophils (%) (Auto) 0.7 0.0-2.0 % Neutrophils # (Auto) 6.0 1.6-8.6 10 ^3/uL Lymphocytes # (Auto) 1.8 0.4-5.4 10 ^3/uL Monocytes # (Auto) 0.4 0-1.3 10 ^3/uL Eosinophils # (Auto) 0.2 0-0.8 10 ^3/uL Basophils # (Auto) 0.1 0-0.2 10 ^3/uL Nucleated Red Blood Cells 0.1 % Sodium Level 142 136-145 mmol/L Potassium Level 4.3 3.5-5.1 mmol/L Chloride Level 109 H 98-107 mmol/L Carbon Dioxide Level 24 20-31 mmol/L Anion Gap 9 5-15 Blood Urea Nitrogen 9 9-23 mg/dL Creatinine 0.80 0.550-1.02 mg/dL Glomerular Filtration Rate Calc 89 >90 mL/min BUN/Creatinine Ratio 11.3 10.0-20.0 Serum Glucose 112 H 74-106 mg/dL Calcium Level 9.8 8.7-10.4 mg/dL Total Bilirubin 0.4 0.2-1.0 mg/dL Aspartate Amino Transferase (AST) 18 13-40 U/L Alanine Aminotransferase (ALT) 21 7-40 U/L Alkaline Phosphatase 121 H 46-116 U/L Total Protein 7.5 5.7-8.2 g/dL Albumin 4.6 3.2-4.8 g/dL [place] [id number] Ph: [phone] DIAGNOSTIC IMAGING Diagnostic Imaging Report : [id number] Signed PATIENT: LAZARA BROWNACCT: [id number] UNIT: [id number] : 1975 LOC: ER ROOM / BED: / AGE / SEX: 49 / F ADM STATUS: REG ER SERVICE 38 ORDERING PHYSICIAN: ROJAS HOYOS MD PROCEDURE(s): CXRP - CHEST PORTABLE REASON: chest pain ORDER NUMBER(s): [id number], ACCESSION NUMBER(s): [id number] CHEST RADIOGRAPH Indication: chest pain Technique: Single frontal view of the chest was obtained Comparison: None FINDINGS: Lines and Tubes: None Lungs: Clear Pleura: No effusion. No pneumothorax. Cardiomediastinal contours: Unremarkable Bones: Unremarkable IMPRESSION: Clear lungs. ATED BY: LUDWIG YOU DO DICTATED DATE/TIME: 08/04/242114 SIGNED BY: LUDWIG YOU DO SIGNED DATE/TIME: 08/04/242114 CC: Time of 1ST Reevaluation: 20:30 Reevaluation 1ST: Unchanged Patient Education/Counseling: Diagnosis, Treatment, Prognosis Family Education/Counseling: No Family Present Departure 1 Departure Time of Disposition: 01:00 Impression: Primary Impression: Atypical chest pain Disposition: 01 HOME / SELF CARE / HOMELESS Condition: Stable Discharged With: Self Critical Care Note Critical Care Time?: No Stability Stability form required: No Heart Score Heart Score: Heart Score Response (Comments) Value History Slightly Suspicious 0 EKG Normal 0 Age <45 0 Risk Factors No known risk factors 0 Troponin Normal limit 0 Total 0 I personally scribed for ROJAS HOYOS MD ([email or web address]) on 08/04/24 at 20:08. Electronically submitted by Jill Kat ([email or web address]). I personally scribed for ROJAS HOYOS MD ([email or web address]) on 08/04/24 at 22:04. Electronically submitted by Jill Kat ([email or web address]). ROJAS HOYOS MD Aug 04, 2024 20:08
[2024-08-04 20:20] LABS: Alanine Aminotransferase 21 U/L (7-40); Albumin 4.6 g/dL (3.2-4.8); Anion Gap 9 (5-15); Aspartate Aminotransferase 18 U/L (13-40); BUN/Creatinine Ratio 11.3 (10.0-20.0); Calcium 9.8 mg/dL (8.7-10.4); Carbon Dioxide 24 mmol/L (20-31); Potassium 4.3 mmol/L (3.5-5.1); Sodium 142 mmol/L (136-145); Total Protein 7.5 g/dL (5.7-8.2)
[2024-08-04 20:21] LABS: Bilirubin, Total 0.4 mg/dL (0.2-1.0)
[2024-08-04 20:22] LABS: Alkaline Phosphatase 121 U/L (46-116); Blood Urea Nitrogen 9 mg/dL (9-23); Chloride 109 mmol/L (98-107); Glucose 112 mg/dL (74-106)
--- NOTE | 2024-08-04 21:17 | DVH ---
CHEST RADIOGRAPH Indication: chest pain Technique: Single frontal view of the chest was obtained Comparison: None FINDINGS: Lines and Tubes: None Lungs: Clear Pleura: No effusion. No pneumothorax. Cardiomediastinal contours: Unremarkable Bones: Unremarkable IMPRESSION: Clear lungs.
[2024-08-04 23:01] VITALS: BP 131/98; PULSE 73; RESP 16; TEMP 98.1; O2SAT 97
--- NOTE | 2024-08-05 03:16 | ECG ---
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
--- NOTE | 2024-08-06 14:43 | ECG ---
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
--- NOTE | 2024-08-06 14:44 | ECG ---
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
== END 2024-08-04 23:04 | disposition home or self-care (01) ==
LOC: ER 19:36
DX: R07.89 Other chest pain (principal); E78.5 Hyperlipidemia, unspecified; E11.9 Type 2 diabetes mellitus without complications; I10 Essential (primary) hypertension; Z86.2 Personal history of diseases of the blood and blood-forming organs and certain disorders involving the immune mechanism; Z90.49 Acquired absence of other specified parts of digestive tract; Z98.890 Other specified postprocedural states; Z88.0 Allergy status to penicillin; Z79.899 Other long term (current) drug therapy; Z79.84 Long term (current) use of oral hypoglycemic drugs; Z79.82 Long term (current) use of aspirin; Z79.02 Long term (current) use of antithrombotics/antiplatelets
CPT/HCPCS: 36415; 71045; 80053; 82947; 84484; 85025; 93005